=== PATIENT | male | born 1960 | race Caucasian/White ===

== ENCOUNTER 2017-02-25 00:05 | Emergency (ER) | payer BC ==
[2017-02-25] MEDS ORDERED: DIPH,PERTUS(ACELL)TETVAC-LF 0.5 ML VIAL IM ONE (00:48)
--- NOTE | 2017-02-25 00:54 | ED ---
General Adult HPI - General Chief complaint: Fall Stated complaint: ETOH,fall Time Seen by Provider: 02/25/17 00:22 Source: patient, family, EMS, RN notes reviewed Mode of arrival: EMS Limitations: altered mental status, physical limitation - History of Present Illness Initial comments: 57-year-old male presents to the emergency Department chief complaint of fall. Patient tripped hitting his chin on the chair. He states he noticed some laceration. They state while they were cleaning him up they had an episode where he just seemed to go away. He denies any pain at this time. Patient has been drinking. He denies any concerns. Patient denies any recent fever, chills , shortness of breath, chest pain, back pain, abdominal pain, nausea vomiting, numbness or tingling, dysuria or hematuria, constipation or diarrhea, headaches or visual changes, or any other current symptoms. - Related Data Previous Rx's Medication Instructions Recorded Amoxicillin/Potassium Clav 1 tab PO Q12HR #20 tab 02/25/17 [Augmentin 875-125 Tablet] Allergies Allergy/AdvReac Type Severity Reaction Status Date / Time No Known Allergies Allergy Verified 02/25/17 00:14 Review of Systems ROS Statement: Those systems with pertinent positive or pertinent negative responses have been documented in the HPI. ROS Other: All systems not noted in ROS Statement are negative. Past Medical History Past Medical History: GERD/Reflux, Hypertension History of Any Multi-Drug Resistant Organisms: None Reported Past Surgical History: No Surgical Hx Reported Past Psychological History: No Psychological Hx Reported Smoking Status: Current every day smoker Past Alcohol Use History: Heavy Past Drug Use History: None Reported General Exam - General Exam Comments Initial Comments: General: The patient is awake and alert, in no distress, and does not appear acutely ill. Head: Patient appears to have a small laceration below the right lip and in the inside of the right lip Eye: Pupils are equal, round and reactive to light, extra-ocular movements are intact; there is normal conjunctiva bilaterally. No signs of icterus. Ears, nose, mouth and throat: There are moist mucous membranes. Neck: The neck is supple, there is no tenderness. Cardiovascular: There is a regular rate and rhythm. No murmur, rub or gallop is appreciated. Respiratory: Lungs are clear to auscultation, respirations are non-labored, breath sounds are equal. No wheezes, stridor, rales, or rhonchi. Gastrointestinal: Soft, non-distended, non-tender abdomen without masses or organomegaly noted. There is no rebound or guarding present. No CVA tenderness. Bowel sounds are unremarkable. Back: There is no tenderness to palpation in the midline. There is no obvious deformity. No rashes noted. Musculoskeletal: Normal ROM, no tenderness, There is no pedal edema. There is no calf tenderness or swelling. Sensation intact. Pulses equal bilaterally 2+. Neurological: CN II-XII intact, There are no obvious motor or sensory deficits. Coordination appears grossly intact. Speech is normal. Skin: Skin is warm and dry and no rashes or lesions are noted. Psychiatric: Cooperative, appropriate mood & affect, normal judgment. Limitations: altered mental status, physical limitation Course Vital Signs 02/25/17 00:09 Temperature 97.6 F Pulse Rate 79 Respiratory 18 Rate Blood Pressure 91/56 O2 Sat by Pulse 96 Oximetry Procedures - Procedures Initial comment: The skin was anesthetized with 1% lidocaine. The laceration was then cleansed with Betadine and irrigated with normal saline. The wound was inspected, and there was no evidence of injury to deep structures. No foreign body was noted in the wound. A total of 1 skin sutures were placed utilizing 6-0 nylon to a chin laceration of 1 cm. The skin was anesthetized with 1% lidocaine. The laceration was then cleansed with Betadine and irrigated with normal saline. The wound was inspected, and there was no evidence of injury to deep structures. No foreign body was noted in the wound. A total of 1 skin sutures were placed utilizing 5-0 Vicryl to a 1 cm lip laceration internal The skin was anesthetized with 1% lidocaine. The laceration was then cleansed with Betadine and irrigated with normal saline. The wound was inspected, and there was no evidence of injury to deep structures. No foreign body was noted in the wound. A total of 1 skin sutures were placed utilizing 6-0 nylon to a lower lip Medical Decision Making - Medical Decision Making 57-year-old male presents to the emergency department with a chief complaint of fall with chin laceration. At this time patient underwent a CT of his head neck and facial bones with no acute process. Patient is appear to have 3 lacerations that underwent repair. We discussed care follow-up return parameters. We discussed outpatient family's questions. They stated the Lasha management this plan. All questions have been answered. They will be discharged. - Radiology Data Radiology results: report reviewed, image reviewed Disposition Clinical Impression: Fall, Alcohol intoxication, Chin laceration, Lip laceration, Head injury Disposition: HOME SELF-CARE Condition: Stable Instructions: Care For Your Stitches (ED), Laceration (ED), Head Injury (ED) Additional Instructions: Please use medication as discussed. Please follow up with family doctor if symptoms have not improved over the next two days. Please return to the emergency room if your symptoms increase or worsen or for any other concerns. Prescriptions: Amoxicillin/Potassium Clav [Augmentin 875-125 Tablet] 1 tab PO Q12HR #20 tab Referrals: Latonya Fuentes MD [Primary Care Provider] - 1-2 days Time of Disposition: 02:03
--- NOTE | 2017-02-25 01:09 | CT ---
EXAMINATION TYPE: CT brain saira thomas DATE OF EXAM: 02/25/2017 COMPARISON: NONE HISTORY: fall, ETOH CT DLP: head 1730.30 body 568.90 mGycm Automated exposure control for dose reduction was used. TECHNIQUE: CT scan of the head and cervical spine are performed without contrast. FINDINGS: Ventricles and sulci appear normal. There is no mass effect nor midline shift. There is n o sign of intracranial hemorrhage. The calvarium is intact. The cervical vertebra have fairly normal alignment. There is some narrowing and spurring at C5-6 C6-7 . The skull base is intact. IMPRESSION: Negative CT scan of the brain. Spondylotic changes in the lower cervical spine. No fracture.
--- NOTE | 2017-02-25 01:11 | CT ---
EXAMINATION TYPE: CT facial bones wo con DATE OF EXAM: 02/25/2017 COMPARISON: NONE HISTORY: fall CT DLP: head 1730.30 body 568.90 mGycm Automated exposure control for dose reduction was used. TECHNIQUE: CT scan of the sinuses is performed without contrast, axial images are obtained, coronal r eformatted images are also reviewed. FINDINGS: The orbital margins are intact. There is no evidence of a blowout fracture. The maxilla is intact. Mandibular ring is intact. The zygomatic arches appear normal. Nasal bone appears intact. Rig ht maxillary sinus is larger than the left. There is no evidence of an orbital mass. IMPRESSION: Negative CT scan of the facial bones. No fracture seen.
[2017-02-25 02:30] VITALS: BP 109/67; PULSE 80; RESP 17; TEMP 97.4
--- NOTE | 2017-02-28 00:20 | CDI ---
Dear Alvarado Davey MD: Please do addendum the size of second laceration of lip. Thank you, Wander Bonilla, [employer]. If you have any questions, please contact Wet Chemistry Analyst at [phone]. mtdD
== END 2017-02-25 02:26 | disposition home or self-care (01) ==
LOC: EC 00:05
DX: S01.81XA Laceration without foreign body of other part of head, initial encounter (principal); S01.511A Laceration without foreign body of lip, initial encounter; F10.129 Alcohol abuse with intoxication, unspecified; R41.82 Altered mental status, unspecified; F17.200 Nicotine dependence, unspecified, uncomplicated; Z53.20 Procedure and treatment not carried out because of patient's decision for unspecified reasons; W19.XXXA Unspecified fall, initial encounter; Y93.89 Activity, other specified; Y92.89 Other specified places as the place of occurrence of the external cause
CPT/HCPCS: 12013; 70450; 70486; 72125; 99284

== ENCOUNTER 2019-04-08 07:42 | Emergency (ER) | payer BC ==
[2019-04-08 07:46] LABS: Glucose,Whole Blood 175 mg/dL (75-99)
[2019-04-08] MEDS ORDERED: SODIUM CHLORIDE 0.9% 1,000 ML IV STA ×2 (07:50→08:56)
--- NOTE | 2019-04-08 07:51 | ED ---
General Adult HPI - General Stated complaint: stroke symptoms Source: patient, family, EMS, RN notes reviewed Mode of arrival: EMS - History of Present Illness Initial comments: Patient is a pleasant 59-year-old male presenting to the emergency department with concern for stroke. Patient woke up 440 without any problems. Around 510 while brushing teeth patient noticed onset of symptoms. Patient and family have noticed facial droop. Patient also has slurred speech. Patient did have a fall however denies any significant injury. Patient does not believe he hit his head. No history of similar symptoms previously. Patient did have some fatigue and fever 3 days ago. No arm or leg weakness noticed. - Related Data Previous Rx's Medication Instructions Recorded Amoxicillin/Potassium Clav 1 tab PO Q12HR #20 tab 02/25/17 [Augmentin 875-125 Tablet] Allergies Allergy/AdvReac Type Severity Reaction Status Date / Time No Known Allergies Allergy Verified 02/25/17 00:14 Review of Systems ROS Statement: Those systems with pertinent positive or pertinent negative responses have been documented in the HPI. ROS Other: All systems not noted in ROS Statement are negative. Constitutional: Denies: fever Eyes: Denies: eye pain ENT: Denies: ear pain Respiratory: Denies: cough Cardiovascular: Denies: chest pain Endocrine: Denies: fatigue Gastrointestinal: Denies: nausea Genitourinary: Denies: dysuria Musculoskeletal: Denies: back pain Skin: Denies: rash Neurological: Reports: weakness. Denies: headache Past Medical History Past Medical History: GERD/Reflux, Hypertension History of Any Multi-Drug Resistant Organisms: None Reported Past Surgical History: No Surgical Hx Reported Past Psychological History: No Psychological Hx Reported Smoking Status: Current every day smoker Past Alcohol Use History: Heavy Past Drug Use History: None Reported General Exam Limitations: no limitations General appearance: alert, in no apparent distress Head exam: Present: normocephalic Eye exam: Present: normal appearance, PERRL, EOMI. Absent: nystagmus ENT exam: Present: normal oropharynx Neck exam: Present: normal inspection Respiratory exam: Present: normal lung sounds bilaterally Cardiovascular Exam: Present: regular rate, normal rhythm GI/Abdominal exam: Present: soft. Absent: tenderness Extremities exam: Present: other (Left upper arm abrasion and soft tissue swelling without significant tenderness) Neurological exam: Present: alert, oriented X3. Absent: CN II-XII intact (Intact except for right facial droop that does not involve the forehead or eye.) Expanded Neurological exam: Present: protecting the airway, other (Slurred speech is present) Patient oriented to: Present: person, place, time Speech: Present: fluid speech Cranial nerves: EOM's Intact: Normal, Facial Sensation: Normal Sensory exam: Upper Extremity Light Touch: Normal, Lower Extremity Light Touch: Normal Motor strength exam: RUE: 5, LUE: 5, RLE: 5, LLE: 5 Eye Response: (4) open spontaneously Motor Response: (6) obeys commands Verbal Response: (5) oriented Psychiatric exam: Present: normal affect, normal mood Skin exam: Present: normal color Course Vital Signs 04/08/19 04/08/19 04/08/19 07:43 07:45 07:49 Temperature Pulse Rate 84 84 82 Respiratory 18 20 20 Rate Blood Pressure 163/111 163/111 158/124 O2 Sat by Pulse 97 97 98 Oximetry 04/08/19 04/08/19 04/08/19 07:51 08:00 08:07 Temperature Pulse Rate 80 85 82 Respiratory 20 20 20 Rate Blood Pressure 160/100 160/100 162/105 O2 Sat by Pulse 98 98 97 Oximetry 04/08/19 04/08/19 04/08/19 08:15 08:30 08:45 Temperature 99.5 F Pulse Rate 82 80 80 Respiratory 20 20 23 Rate Blood Pressure 148/97 161/102 167/103 O2 Sat by Pulse 97 98 99 Oximetry - Reevaluation(s) Reevaluation #1: 04/08/19 07:51 Code stroke was called 04/08/19 08:28 MH was 3. Case was discussed with radiologist Dr. Luis as well as neural interventional list Dr. Carroll. Both have concern for tumor. Patient and family are updated. Patient will need to be transferred. TPA order was stopped. TPA was never given. Dr. Carroll does recommend transfer to [facility]. Patient and family updated. 04/08/19 09:08 Patient and family has preferred [facility]. Dr. Carroll was again notified and is okay with this. 04/08/19 09:11 Case was discussed with Dr. Rhoades at [facility] who will try to do direct admit and call back. 04/08/19 09:39 [address] discussed with Dr. Rhoades, who will accept transfer. Patient and family updated. EKG Findings - EKG Comments: EKG Findings:: Normal sinus rhythm 77. IN 164. QRS 100. QT 390. QTC 441. Normal axis. Normal QRS. No acute ST change. Medical Decision Making - Lab Data Result diagrams: 04/08/19 07:50 04/08/19 07:50 Lab Results 04/08/19 04/08/19 04/08/19 Range/Units 07:44 07:50 07:50 WBC 15.7 H (3.8-10.6) k/uL RBC 4.88 (4.30-5.90) m/uL Hgb 15.4 (13.0-17.5) gm/dL Hct 44.9 (39.0-53.0) % MCV 92.1 (80.0-100.0) fL MCH 31.6 (25.0-35.0) pg MCHC 34.3 (31.0-37.0) g/dL RDW 12.4 (11.5-15.5) % Plt Count 218 (150-450) k/uL Neutrophils % 90 % Lymphocytes % 5 % Monocytes % 3 % Eosinophils % 0 % Basophils % 1 % Neutrophils # 14.1 H (1.3-7.7) k/uL Lymphocytes # 0.8 L (1.0-4.8) k/uL Monocytes # 0.5 (0-1.0) k/uL Eosinophils # 0.1 (0-0.7) k/uL Basophils # 0.1 (0-0.2) k/uL PT (9.0-12.0) sec INR (<1.2) APTT (22.0-30.0) sec Sodium 139 (137-145) mmol/L Potassium 4.3 (3.5-5.1) mmol/L Chloride 108 H (98-107) mmol/L Carbon Dioxide 22 (22-30) mmol/L Anion Gap 9 mmol/L BUN 19 (9-20) mg/dL Creatinine 1.15 (0.66-1.25) mg/dL Est GFR (CKD-EPI)AfAm 81 (>60 ml/min/1.73 sqM) Est GFR (CKD-EPI)NonAf 70 (>60 ml/min/1.73 sqM) Glucose 139 H (74-99) mg/dL POC Glucose (mg/dL) 175 H (75-99) mg/dL POC Glu Store Manager ID Karla Lomeli Calcium 8.9 (8.4-10.2) mg/dL Total Bilirubin 0.8 (0.2-1.3) mg/dL AST 183 H (17-59) U/L ALT 59 H (4-49) U/L Alkaline Phosphatase 46 (38-126) U/L Total Creatine Kinase (55-170) U/L CK-MB (CK-2) (0.0-2.4) ng/mL CK-MB (CK-2) Rel Index Troponin I (0.000-0.034) ng/mL Total Protein 7.2 (6.3-8.2) g/dL Albumin 4.2 (3.5-5.0) g/dL 04/08/19 04/08/19 Range/Units 07:50 07:50 WBC (3.8-10.6) k/uL RBC (4.30-5.90) m/uL Hgb (13.0-17.5) gm/dL Hct (39.0-53.0) % MCV (80.0-100.0) fL MCH (25.0-35.0) pg MCHC (31.0-37.0) g/dL RDW (11.5-15.5) % Plt Count (150-450) k/uL Neutrophils % % Lymphocytes % % Monocytes % % Eosinophils % % Basophils % % Neutrophils # (1.3-7.7) k/uL Lymphocytes # (1.0-4.8) k/uL Monocytes # (0-1.0) k/uL Eosinophils # (0-0.7) k/uL Basophils # (0-0.2) k/uL PT 10.0 (9.0-12.0) sec INR 1.0 (<1.2) APTT 22.1 (22.0-30.0) sec Sodium (137-145) mmol/L Potassium (3.5-5.1) mmol/L Chloride (98-107) mmol/L Carbon Dioxide (22-30) mmol/L Anion Gap mmol/L BUN (9-20) mg/dL Creatinine (0.66-1.25) mg/dL Est GFR (CKD-EPI)AfAm (>60 ml/min/1.73 sqM) Est GFR (CKD-EPI)NonAf (>60 ml/min/1.73 sqM) Glucose (74-99) mg/dL POC Glucose (mg/dL) (75-99) mg/dL POC Glu Store Manager ID Calcium (8.4-10.2) mg/dL Total Bilirubin (0.2-1.3) mg/dL AST (17-59) U/L ALT (4-49) U/L Alkaline Phosphatase (38-126) U/L Total Creatine Kinase 21446 H* (55-170) U/L CK-MB (CK-2) 3.1 H (0.0-2.4) ng/mL CK-MB (CK-2) Rel Index Troponin I 0.013 (0.000-0.034) ng/mL Total Protein (6.3-8.2) g/dL Albumin (3.5-5.0) g/dL - Radiology Data Radiology results: image reviewed (Computed tomography scan of the brain shows for mass approximate 3 cm with some surrounding attenuation suggesting edema. Right frontal parietal region. Some focal increased attenuation is present. Chest x-ray shows old rib fractures) Critical Care Time Critical Care Time: Yes Total Critical Care Time: 31 Disposition Clinical Impression: Brain tumor Disposition: OTHER INSTITUTION NOT DEFINED Is patient prescribed a controlled substance at d/c from ED?: No Referrals: Julio Fonseca DO [Primary Care Provider] - 1-2 days Time of Disposition: 08:32 - Out of Hospital Transfer - Req. Specs Out of Hospital Transfer - Requested Specifics: Other Emergency Center
[2019-04-08 08:00] LABS: Basophils # (A) 0.1 k/uL (0-0.2); Basophils % (A) 1 %; Eosinophils # (A) 0.1 k/uL (0-0.7); Eosinophils % (A) 0 %; HCT 44.9 % (39.0-53.0); HGB 15.4 gm/dL (13.0-17.5); Lymphocytes # (A) 0.8 k/uL (1.0-4.8); Lymphocytes % (A) 5 %; MCH 31.6 pg (25.0-35.0); MCHC 34.3 g/dL (31.0-37.0); MCV 92.1 fL (80.0-100.0); Mean Platelet Volume 7.6; Monocytes # (A) 0.5 k/uL (0-1.0); Monocytes % (A) 3 %; Neutrophils # (A) 14.1 k/uL (1.3-7.7); Neutrophils % (A) 90 %; Platelet Count 218 k/uL (150-450); RBC 4.88 m/uL (4.30-5.90); RDW 12.4 % (11.5-15.5); WBC 15.7 k/uL (3.8-10.6)
[2019-04-08] MEDS ORDERED: ALTEPLASE 81 MG in EMPTY BAG 1 BAG IV STA (08:00)
[2019-04-08] MEDS ORDERED: Alteplase PER PHARMACY Stroke 1 EACH MISC MISCELLANE PRN (08:00)
[2019-04-08] MEDS ORDERED: ALTEPLASE BOLUS 9 MG in EMPTY SYRINGE 1 SYR IV STA (08:00)
[2019-04-08 08:12] LABS: Albumin 4.2 g/dL (3.5-5.0); Calcium 8.9 mg/dL (8.4-10.2); Potassium 4.3 mmol/L (3.5-5.1); Total Bilirubin 0.8 mg/dL (0.2-1.3); Total Protein 7.2 g/dL (6.3-8.2)
[2019-04-08 08:15] LABS: Partial Thromboplastin Time 22.1 sec (22.0-30.0)
--- NOTE | 2019-04-08 08:20 | CT ---
EXAMINATION TYPE: CT brain wo con for TPA DATE OF EXAM: 04/08/2019 COMPARISON: Prior CT brain 02/25/2017 HISTORY: Neuro deficit, facial droop, slurred speech and fall CT DLP: 1088 mGycm Automated exposure control for dose reduction was used. Helical acquisition through the brain using d epartmental protocol FINDINGS: There is a spherical lesion present within the right frontal parietal region measuring approximately 3 cm in greatest dimension with some surrounding low attenuation suggestive of vasogenic edema. Some scattered foci of increased attenuation present within the lesion. No definite hemorrhage or hydrocep halus. Calvarium is intact. Paranasal sinuses and mastoid air cells are well aerated. IMPRESSION: FINDINGS SUGGEST MASS LESION WITHIN THE BRAIN DESCRIBED. MRI WITH AND WITHOUT CONTRAST SUGGESTED A LTERNATIVELY CONSIDER CONTRAST-ENHANCED BRAIN CT.
[2019-04-08] MEDS ORDERED: DEXAMETHASONE SOD PHOSPHATE 10 MG/ML 1 ML VIAL IV STA (08:21)
[2019-04-08 08:30] LABS: Creatine Kinase MB 3.1 ng/mL (0.0-2.4); Troponin I 0.013 ng/mL (0.000-0.034)
--- NOTE | 2019-04-08 08:52 | CT ---
EXAMINATION TYPE: CT angio head neck DATE OF EXAM: 04/08/2019 HISTORY: slurred speech, fall COMPARISON: CT brain same date CT DLP: 628.9 mGycm. Automated Exposure Control for Dose Reduction was Utilized. TECHNIQUE: CTA scan of the neck is performed with IV Contrast, patient injected with 65 mL of Isovue 370, axial images are obtained, coronal and sagittal reformatted images are reviewed. Three-D recons tructed images are created on an independent workstation and reviewed. FINDINGS: Carotid/Vascular Structures: Transverse aorta is patent, there are 4 super aortic branch vessels. The innominate left and right subclavian, left and right common carotid, left and right vertebral arteri es are patent, right vertebral artery is dominant. No evidence stenosis of the internal carotid arter ies. The [place] is patent. Anterior posterior circulation shows no dissection, embolus, or aneurysm. Right-sided cerebral mass again noted. Other: Lung apices show emphysematous change. IMPRESSION: No significant vascular abnormality is seen.
[2019-04-08] MEDS ORDERED: SODIUM CHLORIDE 0.9% 50 ML MINI-BAG IV ONE (09:00)
--- NOTE | 2019-04-08 09:17 | XR ---
EXAMINATION TYPE: XR chest 2V DATE OF EXAM: 04/08/2019 COMPARISON: NONE HISTORY: Altered mental status TECHNIQUE: Frontal and lateral views of the chest are obtained. FINDINGS: There is no focal air space opacity, pleural effusion, or pneumothorax seen. The cardiac silhouette size is within normal limits. Multiple old healed right rib fractures are seen. IMPRESSION: No acute cardiopulmonary process.
[2019-04-08 09:50] VITALS: BP 153/99; PULSE 78; RESP 20; TEMP 99.2
== END 2019-04-08 09:45 | disposition other institution (70) ==
LOC: EC 07:42
DX: D49.6 Neoplasm of unspecified behavior of brain (principal); R29.810 Facial weakness; R50.9 Fever, unspecified; F17.200 Nicotine dependence, unspecified, uncomplicated
CPT/HCPCS: 36415; 93005; 80053; 82550; 82553; 84484; 85025; 85610; 85730; 71046; 70496; 70450; 70498; 99291; 96374; 96361; J1100; Q9967

== ENCOUNTER 2019-05-09 14:03 | Emergency (ER) | payer BC ==
[2019-05-09] MEDS ORDERED: SODIUM CHLORIDE 0.9% 500 ML 500 ML IV STA (14:08)
[2019-05-09 14:11] LABS: Glucose,Whole Blood 112 mg/dL (75-99)
[2019-05-09 14:12] VITALS: RESP 18
--- NOTE | 2019-05-09 14:12 | ED ---
General Adult HPI - General Stated complaint: Stroke like Symptoms Time Seen by Provider: 05/09/19 14:03 Source: patient, RN notes reviewed, old records reviewed - History of Present Illness Initial comments: This is a 59-year-old male who presents emergency Department with a recent past medical history for newly diagnosed glioblastoma. Patient had a seizure with his first diagnosis. He is on Keppra. Patient comes in today because family states he had seizure-like activity and after the seizure he has slurred speech and left-sided facial droop. According to family both of which have improved since he had a seizure but they still persist. Patient is alert and oriented 4 currently. Patient has no complaints. Patient has full range of motion of all 4 extremities. Patient denies any numbness weakness. Patient denies any chest pain difficulty breathing shortness of breath. Patient denies any recent fever chills or cough. Patient denies any abdominal pain patient denies nausea vomiting diarrhea. - Related Data Home Medications Medication Instructions Recorded Confirmed Dexamethasone [Hexadrol] 4 mg PO DAILY 05/09/19 05/09/19 Hydrochlorothiazide [Hydrodiuril] 12.5 mg PO DAILY@1800 05/09/19 05/09/19 Lisinopril [Zestril] 20 mg PO DAILY@1800 05/09/19 05/09/19 levETIRAcetam [Keppra] 500 mg PO Q12HR 05/09/19 05/09/19 Allergies Allergy/AdvReac Type Severity Reaction Status Date / Time No Known Allergies Allergy Verified 05/09/19 15:13 Review of Systems ROS Statement: Those systems with pertinent positive or pertinent negative responses have been documented in the HPI. ROS Other: All systems not noted in ROS Statement are negative. Past Medical History Past Medical History: GERD/Reflux, Hypertension History of Any Multi-Drug Resistant Organisms: None Reported Past Surgical History: No Surgical Hx Reported Past Psychological History: No Psychological Hx Reported Smoking Status: Current every day smoker Past Alcohol Use History: Heavy Past Drug Use History: None Reported General Exam - General Exam Comments Initial Comments: GENERAL: Patient is well-developed and well-nourished. Patient is nontoxic and well- hydrated and is in no acute distress. ENT: Neck is soft and supple. No significant lymphadenopathy is noted. Oropharynx is clear. Moist mucous membranes. Neck has full range of motion without eliciting any pain. EYES: The sclera were anicteric and conjunctiva were pink and moist. Extraocular movements were intact and pupils were equal round and reactive to light. Eyelid s were unremarkable. PULMONARY: Unlabored respirations. Good breath sounds bilaterally. No audible rales rhonchi or wheezing was noted. CARDIOVASCULAR: There is a regular rate and rhythm without any murmurs gallops or rubs. ABDOMEN: Soft and nontender with normal bowel sounds. SKIN: Skin is clear with no lesions or rashes and otherwise unremarkable. NEUROLOGIC: Patient is alert and oriented x3. Cranial nerves II through XII are grossly intact. Motor and sensory are also intact. Patient's speech is slurred and he has very subtle left-sided facial droop MUSCULOSKELETAL: Normal extremities with adequate strength and full range of motion. No lower extremity swelling or edema. No calf tenderness. LYMPHATICS: No significant lymphadenopathy is noted PSYCHIATRIC: Normal psychiatric evaluation. Course Vital Signs 05/09/19 05/09/19 05/09/19 14:05 14:11 14:26 Temperature 98.8 F 98.8 F Pulse Rate 102 H 98 96 Respiratory 18 18 17 Rate Blood Pressure 118/85 117/68 103/78 O2 Sat by Pulse 94 L 98 98 Oximetry 05/09/19 14:41 Temperature 87 F L Pulse Rate 87 Respiratory 18 Rate Blood Pressure 115/69 O2 Sat by Pulse 98 Oximetry Medical Decision Making - Medical Decision Making EKG shows normal sinus rhythm at 92 bpm DC interval is 166 QRS 100 a QT interval 364 QTC is 450 per patient's EKG shows no ST segment elevation or depression. CT of the brain when compared to a 04/08/2019 minutes to the shows interval resection of the right frontal and axillary mass is fluid attenuated cavity remains with slightly increased mass effect in comparison to prior exam there is some vasogenic edema residual tumor is possible versus postoperative seroma. There is also a area of linear density that is seen adjacent to the craniotomy defect he could represent postsurgical material although a punctate focus of subarachnoid hemorrhage is a possibility I spoke with Dr. Acuna and gave her the results of the CAT scan and she wanted the patient transferred to [facility] ER. I spoke with Dr. Aj and he accepted the transfer to the emergency department Patient started to have some facial twitching which was a prodrome to the seizure earlier psychiatric the patient 1 mg Ativan. - Lab Data Result diagrams: 05/09/19 14:01 05/09/19 14:01 Lab Results 05/09/19 05/09/19 05/09/19 Range/Units 14:01 14: 14:01 WBC 8.2 (3.8-10.6) k/uL RBC 4.37 (4.30-5.90) m/uL Hgb 13.6 (13.0-17.5) gm/dL Hct 40.9 (39.0-53.0) % MCV 93.7 (80.0-100.0) fL MCH 31.3 (25.0-35.0) pg MCHC 33.4 (31.0-37.0) g/dL RDW 12.6 (11.5-15.5) % Plt Count 191 (150-450) k/uL Neutrophils % 82 % Lymphocytes % 10 % Monocytes % 6 % Eosinophils % 1 % Basophils % 0 % Neutrophils # 6.7 (1.3-7.7) k/uL Lymphocytes # 0.8 L (1.0-4.8) k/uL Monocytes # 0.5 (0-1.0) k/uL Eosinophils # 0.1 (0-0.7) k/uL Basophils # 0.0 (0-0.2) k/uL PT 9.6 (9.0-12.0) sec INR 0.9 (<1.2) APTT 19.7 L (22.0-30.0) sec Sodium 133 L (137-145) mmol/L Potassium 3.9 (3.5-5.1) mmol/L Chloride 98 (98-107) mmol/L Carbon Dioxide 28 (22-30) mmol/L Anion Gap 7 mmol/L BUN 29 H (9-20) mg/dL Creatinine 0.82 (0.66-1.25) mg/dL Est GFR (CKD-EPI)AfAm >90 (>60 ml/min/1.73 sqM) Est GFR (CKD-EPI)NonAf >90 (>60 ml/min/1.73 sqM) Glucose 113 H (74-99) mg/dL POC Glucose (mg/dL) (75-99) mg/dL POC Glu Paper Finisher ID Calcium 8.7 (8.4-10.2) mg/dL Total Bilirubin 0.3 (0.2-1.3) mg/dL AST 52 (17-59) U/L ALT 75 H (4-49) U/L Alkaline Phosphatase 43 (38-126) U/L Total Creatine Kinase (55-170) U/L CK-MB (CK-2) (0.0-2.4) ng/mL CK-MB (CK-2) Rel Index Troponin I (0.000-0.034) ng/mL Total Protein 5.9 L (6.3-8.2) g/dL Albumin 3.6 (3.5-5.0) g/dL 05/09/19 05/09/19 Range/Units 14:01 14:06 WBC (3.8-10.6) k/uL RBC (4.30-5.90) m/uL Hgb (13.0-17.5) gm/dL Hct (39.0-53.0) % MCV (80.0-100.0) fL MCH (25.0-35.0) pg MCHC (31.0-37.0) g/dL RDW (11.5-15.5) % Plt Count (150-450) k/uL Neutrophils % % Lymphocytes % % Monocytes % % Eosinophils % % Basophils % % Neutrophils # (1.3-7.7) k/uL Lymphocytes # (1.0-4.8) k/uL Monocytes # (0-1.0) k/uL Eosinophils # (0-0.7) k/uL Basophils # (0-0.2) k/uL PT (9.0-12.0) sec INR (<1.2) APTT (22.0-30.0) sec Sodium (137-145) mmol/L Potassium (3.5-5.1) mmol/L Chloride (98-107) mmol/L Carbon Dioxide (22-30) mmol/L Anion Gap mmol/L BUN (9-20) mg/dL Creatinine (0.66-1.25) mg/dL Est GFR (CKD-EPI)AfAm (>60 ml/min/1.73 sqM) Est GFR (CKD-EPI)NonAf (>60 ml/min/1.73 sqM) Glucose (74-99) mg/dL POC Glucose (mg/dL) 112 H (75-99) mg/dL POC Glu Paper Finisher ID Yoselin Berger Calcium (8.4-10.2) mg/dL Total Bilirubin (0.2-1.3) mg/dL AST (17-59) U/L ALT (4-49) U/L Alkaline Phosphatase (38-126) U/L Total Creatine Kinase 375 H (55-170) U/L CK-MB (CK-2) 9.0 H (0.0-2.4) ng/mL CK-MB (CK-2) Rel Index 2.4 Troponin I <0.012 (0.000-0.034) ng/mL Total Protein (6.3-8.2) g/dL Albumin (3.5-5.0) g/dL Critical Care Time Critical Care Time: Yes Total Critical Care Time: 35 Disposition Clinical Impression: Subarachnoid hemorrhage, Family history of glioblastoma, Seizure Disposition: OTHER INSTITUTION NOT DEFINED Referrals: Julio Fonseca DO [Primary Care Provider] - 1-2 days Time of Disposition: 16:20 - Out of Hospital Transfer - Req. Specs Out of Hospital Transfer - Requested Specifics: Other Emergency Center ([facility] emergency department)
[2019-05-09 14:21] LABS: Basophils % (A) 0 %; Eosinophils # (A) 0.1 k/uL (0-0.7); Eosinophils % (A) 1 %; HCT 40.9 % (39.0-53.0); HGB 13.6 gm/dL (13.0-17.5); Lymphocytes # (A) 0.8 k/uL (1.0-4.8); Lymphocytes % (A) 10 %; MCH 31.3 pg (25.0-35.0); MCHC 33.4 g/dL (31.0-37.0); MCV 93.7 fL (80.0-100.0); Monocytes # (A) 0.5 k/uL (0-1.0); Monocytes % (A) 6 %; Neutrophils # (A) 6.7 k/uL (1.3-7.7); Neutrophils % (A) 82 %; Platelet Count 191 k/uL (150-450); RBC 4.37 m/uL (4.30-5.90); RDW 12.6 % (11.5-15.5); WBC 8.2 k/uL (3.8-10.6)
[2019-05-09 14:32] LABS: Creatine Kinase 375 U/L (55-170)
[2019-05-09 14:33] LABS: ALT 75 U/L (4-49); AST 52 U/L (17-59); African American GFR (CKD) >90 (>60 ml/min/1.73 sqM); Albumin 3.6 g/dL (3.5-5.0); Alkaline Phosphatase 43 U/L (38-126); Anion Gap 7 mmol/L; Blood Urea Nitrogen 29 mg/dL (9-20); Calcium 8.7 mg/dL (8.4-10.2); Carbon Dioxide 28 mmol/L (22-30); Chloride 98 mmol/L (98-107); Glucose 113 mg/dL (74-99); Non-African American GFR(CKD) >90 (>60 ml/min/1.73 sqM); Potassium 3.9 mmol/L (3.5-5.1); Sodium 133 mmol/L (137-145); Total Bilirubin 0.3 mg/dL (0.2-1.3); Total Protein 5.9 g/dL (6.3-8.2)
--- NOTE | 2019-05-09 14:40 | CT ---
EXAMINATION TYPE: CT brain wo con for TPA DATE OF EXAM: 05/09/2019 COMPARISON: CT dated 04/08/2019 HISTORY: Neural deficit, acute stroke suspected CT DLP: 1102 mGycm Automated exposure control for dose reduction was used. FINDINGS: Craniotomy changes seen of the right parietal lobe. Linear hyperdensity extends from the craniectomy site on axial image 23 and 24 only and may represent postsurgical material or subarachnoid hemorrhage . At the previous site of intra-axial mass on the CT of 04/08/2019 there is a focal rounded area of hy poattenuation measuring 2.5 x 2.1 cm with surrounding vasogenic edema. The degree of vasogenic edema has mildly progressed in comparison to the prior of 04/08/2019. There is no midline shift seen. Parana rosa sinuses and mastoid air cells are well aerated. IMPRESSION: 1. ALTHOUGH APPEARS TO HAVE BEEN INTERVAL RESECTION OF THE RIGHT FRONTAL INTRA-AXIAL MASS IS FLUID AT TENUATED CAVITY REMAINS WITH SLIGHTLY INCREASED MASS EFFECT IN COMPARISON TO THE PRIOR EXAM AND VASOG ENIC EDEMA. RESIDUAL TUMOR IS POSSIBLE VERSUS POSTOPERATIVE SEROMA. THIS COULD BE FURTHER EVALUATED W ITH MRI. 2. LINEAR AREA OF HIGH DENSITY IS SEEN DIRECTLY ADJACENT TO THE CRANIECTOMY DEFECT AND COULD REPRESEN T POSTSURGICAL MATERIAL ALTHOUGH A PUNCTATE FOCUS OF SUBARACHNOID HEMORRHAGE IS A POSSIBILITY.
[2019-05-09 14:44] LABS: INR 0.9 (<1.2); Partial Thromboplastin Time 19.7 sec (22.0-30.0); Prothrombin Time 9.6 sec (9.0-12.0); Troponin I <0.012 ng/mL (0.000-0.034)
--- NOTE | 2019-05-09 14:50 | CT ---
EXAMINATION TYPE: CT angio head neck DATE OF EXAM: 05/09/2019 HISTORY: slurred speech COMPARISON: CT brain of the same date and CTA brain dated 04/08/2019 CT DLP: 681.1 mGycm. Automated Exposure Control for Dose Reduction was Utilized. TECHNIQUE: CTA scan of the neck is performed with IV Contrast, patient injected with 65 mL of Isovue 370, axial images are obtained, coronal and sagittal reformatted images are reviewed. Three-D recons tructed images are created on an independent workstation and reviewed. FINDINGS: Carotid/Vascular Structures: The left vertebral artery originates strictly from the aortic arch, norm al anatomic variant with late entry into the transverse foramen. Right vertebral artery is dominant. Vertebral arteries in their cervical portions appear patent. Common carotid arteries, carotid bulbs a nd cervical portions of the internal carotid arteries are also patent. Vertebrobasilar system is unremarkable. Anterior and posterior circulation demonstrate no evidence of dynamically significant stenosis or occlusion. The resection cavity of the right frontal intra-axial mass has peripheral enhancement. Other: Mild paraseptal emphysematous changes are seen at the lung apices. Mild degenerative changes o f the cervical spine. IMPRESSION: 1. Peripheral enhancement of the resection cavity of the right frontal intra-axial mass is nonspecifi c and can be seen in the setting of deposition of granulation tissue, residual mass, or intracranial abscess in the appropriate clinical setting. 2. No hemodynamically significant stenosis, aneurysmal outpouching or occlusion of the major arterial vasculature of the head or neck.
[2019-05-09] MEDS ORDERED: DEXAMETHASONE SOD PHOSPHATE 10 MG/ML 1 ML VIAL IV STA (15:00)
[2019-05-09] MEDS ORDERED: levETIRAcetam IV 1,000 MG in SALINE 1 100ML.BAG IVPB STA (15:08)
[2019-05-09] MEDS ORDERED: LORazepam 2 MG/ML INJ IV STA ×2 (16:18→16:48)
[2019-05-09 16:55] VITALS: BP 118/75; PULSE 82; TEMP 98.4
== END 2019-05-09 16:55 | disposition short-term general hospital (02) ==
LOC: EC 14:03
DX: I60.9 Nontraumatic subarachnoid hemorrhage, unspecified (principal); R47.81 Slurred speech; R29.810 Facial weakness; R56.9 Unspecified convulsions; G93.89 Other specified disorders of brain; G93.6 Cerebral edema; C71.9 Malignant neoplasm of brain, unspecified; I10 Essential (primary) hypertension; F17.200 Nicotine dependence, unspecified, uncomplicated; Z79.52 Long term (current) use of systemic steroids; Z79.899 Other long term (current) drug therapy; Z98.890 Other specified postprocedural states; Z80.8 Family history of malignant neoplasm of other organs or systems
CPT/HCPCS: 36415; 93005; 80053; 82550; 82553; 84484; 85025; 85610; 85730; 70496; 70450; 70498; 99291; 96365; 96375 ×2; 96361; J2060; J1100; J1953; Q9967

== ENCOUNTER → 2019-06-30 | Outpatient (CLI) | payer BC ==
--- NOTE | 2019-07-03 08:29 | MR ---
EXAMINATION TYPE: MR brain wo/w con DATE OF EXAM: 06/30/2019 COMPARISON: Outside MRI May 19, 2019. HISTORY: Tumor resection in April 2019. Malignant Neoplasm, Stage 4 dx TECHNIQUE: Multiplanar, multisequence images of the brain and brainstem is performed without and with IV contras t, utilizing 7.5 mL intravenous Gadavist . FINDINGS: Diffusion weighted images demonstrate no evidence of a recent infarct or new diffusion abno rmality. There is redemonstration of postsurgical changes from right frontal temporal craniotomy. Pos tsurgical products within the resection bed are redemonstrated. There is persistent vasogenic edema s urrounding this level greatest superiorly and along the deep margin. Amount of vasogenic edema partic ularly along the deep aspect is felt slightly improved. There is however more confluent heterogeneous enhancement near foci of artifact related to surgical change that is more prominent or progressed fr om prior study suggesting local neoplastic progression. This has slightly lobulated margins best appr eciated on coronal image 23 series 602 where it measures 2.7 cm transversely by 2.9 cm craniocaudal d imension and sagittal image 67. Persistent nonspecific T2 and FLAIR hyperintensity to the right poste rior insular cortex for reference series 501 image 33 through 35 not significantly changed from prior study. No new midline shift. Persistent few scattered small foci of T2 hyperintensity throughout the white matter bilaterally and mild generalized age-related cerebral atrophy. Midline structures redemonstrated normal morphology. The craniocervical junction appears within norm al limits. Post contrast images demonstrate no new Areas of enhancement. The dural venous sinuses appear patent. The visualized sinuses are clear and th e globes are intact. Nasal septum remains deviated to left of midline. IMPRESSION: More suspicious confluent enhancement at site of known neoplasm and attempted resection. Fairly stable surrounding vasogenic edema and local mass effect. No new midline shift. No new discont iguous areas of enhancement identified.
== END | disposition home or self-care (01) ==
LOC: RADMRIMAIN 11:16
PROVIDERS: ATTEND Radiology Radiation Oncology
DX: C71.3 Malignant neoplasm of parietal lobe (principal)
CPT/HCPCS: 70553; A9585

== ENCOUNTER → 2019-12-30 | Outpatient (CLI) | payer BC ==
--- NOTE | 2019-12-30 13:56 | MR ---
EXAMINATION TYPE: MR brain wo/w con DATE OF EXAM: 12/30/2019 COMPARISON: Prior MR brain 06/30/2019 HISTORY: Malignant neoplasm of parietal lobe TECHNIQUE: Multiplanar, multisequence images of the brain and brainstem is performed without and with IV contras t, utilizing 9 mL intravenous Gadavist . FINDINGS: Diffusion weighted images demonstrate no evidence of a recent infarct or other diffusion ab normality. There has been interval progression in the abnormal signal within the right cerebrum invo lving the right frontal, parietal and temporal lobes. Extensive vasogenic edema is suspected. The lázaro or seen on prior exam with heterogeneous signal, peripheral ring enhancement has increased in size an d now measures approximately 5.4 cm in AP dimension, 4.1 cm in transverse dimension, 4.6 cm in cephal ad to caudal dimension. There is mass effect on the right lateral ventricle. Some minimal midline gabe ft, no definite subfalcine herniation at this time. There is effacement of the sulci over the convexi ty on the right as compared to left, right sided craniotomy change is again noted. No evident hemorrhage. Scattered left-sided hyperintensities on inversion recovery and T2-weighted se quences are again noted. Corpus callosum, pituitary, cervical medullary junction, cerebellopontine an gles are within normal limits. Left mastoid air cells show extensive inflammatory change, progressed from prior. The orbits show sym metric appearance. IMPRESSION: Interval increase in size in patient's right-sided brain tumor with associated vasogenic edema as described. Report relayed to Brandi telephonically in Dr. Jackson's office at the time of inte rpretation.
== END | disposition home or self-care (01) ==
LOC: RADMRIMAIN 10:02
PROVIDERS: ATTEND Radiology Radiation Oncology
DX: C71.3 Malignant neoplasm of parietal lobe (principal)
CPT/HCPCS: 70553; A9585

== ENCOUNTER → 2020-03-11 | Outpatient (CLI) | payer BC ==
--- NOTE | 2020-03-11 23:50 | MR ---
EXAMINATION TYPE: MR brain wo/w con DATE OF EXAM: 03/11/2020 COMPARISON: 12/30/2019 HISTORY: F/U to Glioblastoma resection CONTRAST: Standard multiplanar, multisequence MRI departmental protocol utilizing 9 mL intravenous Gadavist edel olinium contrast. There is a 7 x 4.5 cm area of mixed signal involving the right cerebral hemisphere in the right tempo ral and parietal lobe consistent with postsurgical changes. There is no mass effect. Ventricles have fairly normal size. There is no midline shift. Diffusion images show patchy areas of increased signal within the right hemisphere distributed over a 5.5 cm region. There is patchy nodular and linear enh ancement in the right hemisphere mass distributed over a region that measures 5.8 x 3.6 cm and consis tent with residual tumor in this patient with right temporal craniotomy. There is overall less mass e ffect in the right cerebral hemisphere compared to previous exam. The brainstem is intact. There is normal enhancement of the venous sinuses. There is some thinning of the corpus callosum. There is cerebral cortical atrophy. IMPRESSION: Postsurgical changes in the right cerebral hemisphere with slight decreased mass effect compared to o ld exam. There is however a larger area of patchy enhancement within the right hemisphere than previo us exam and consistent with residual and recurrent tumor.
== END | disposition home or self-care (01) ==
LOC: RADMRIMAIN 17:01
PROVIDERS: ATTEND Internal Medicine Hematology & Oncology
DX: C71.9 Malignant neoplasm of brain, unspecified (principal); Z98.890 Other specified postprocedural states
CPT/HCPCS: 70553; A9585

== ENCOUNTER → 2020-05-17 | Outpatient (CLI) | payer BC ==
--- NOTE | 2020-05-17 13:16 | MR ---
EXAMINATION TYPE: MR brain wo/w con DATE OF EXAM: 05/17/2020 COMPARISON: MR brain 03/11/2020 HISTORY: F/U to Glioblastoma resection. TECHNIQUE: Multiplanar, multisequence images of the brain and brainstem is performed without and with IV contras t, utilizing 9 mL intravenous Gadavist . FINDINGS: The mass described in previous report has increased in size and now measures approximately 8.1 cm x 5.9 cm in transverse by 7.2 cm in cephalad to caudal dimension compared to prior when it ollie sured approximately 6.9 x 5.1 x 5.1 cm on postcontrast imaging with heterogeneous enhancement. There is some increased mass effect on the right lateral ventricle. Increased signal seen on inversion hector very T2-weighted sequences within the right cerebral peduncle, some scattered hyperintensities again noted within the deep white matter on the left similar to prior exam. There is no evident hemorrhage or hydrocephalus. No subfalcine herniation is evident at this time. Inflammatory changes present ethmoid air cells on the left. Orbits show symmetric appearance. No othe r significant interval changes. Enhancement along the inner table over the left parietal region shows a similar appearance to prior exam and older exams. IMPRESSION: There is been interval growth of the patient's mass as described.
== END | disposition home or self-care (01) ==
LOC: RADMRIMAIN 10:54
PROVIDERS: ATTEND Internal Medicine Hematology & Oncology
DX: C71.9 Malignant neoplasm of brain, unspecified (principal)
CPT/HCPCS: 70553; A9585